=== PATIENT | female | born 1995 | race Caucasian/White ===

== ENCOUNTER 2019-08-24 03:45 | Emergency (ER) | payer OTHER ==
[~2019-08-24] VITALS: Ht 160 cm; Wt 72.6 kg
[2019-08-24 03:45] VITALS: BP 105/64
[2019-08-24 05:12] VITALS: BP 105/64
--- NOTE | 2019-08-24 05:12 | NUR ---
PATIENT SEEN AND CLEARED BY DR. WOLFE. NO NURSING CARE RENDERED. DISCHARGED BY DR. WOLFE. AMB IN CUSTODY, ESCORTED BY [facility].
== END 2019-08-24 05:12 ==
LOC: MED 03:45
DX: Z02.89 Encounter for other administrative examinations (principal)
CPT/HCPCS: 99283